=== PATIENT | male | born 1965 | race Caucasian/White ===

== ENCOUNTER 2018-10-04 17:33 | Emergency (ER) | payer OTHER ==
[2018-10-04 17:57] VITALS: BP 122/90; PULSE 96; TEMP 98.1; BMI 20.7
--- NOTE | 2018-10-04 18:53 | PDOC ---
History of Present Illness - General Chief Complaint: Injury Stated Complaint: RIB PAIN Time Seen by Provider: 10/04/18 18:41 History Source: Patient Exam Limitations: No Limitations - History of Present Illness Initial Comments: 10/04/18 18:51 States was followed by a friend a couple days ago and since that time his had significant pain to his chest wall primarily right sided ribs 56 and 7. Is uncertain but thinks may have some cracked ribs. Denies shortness of breath, denies fever,. Was recently in the intensive care unit for 5 days for gastric bleeding and liver disease due to alcoholism. Occurred: reports: last week Severity: reports: mild, moderate Modifying Factors: improves with: cold therapy Associated Symptoms (Fall): confusion, headache Past History - Travel Traveled outside of the country in the last 30 days: No Close contact w/someone who was outside of country & ill: No - Past Medical History Allergies/Adverse Reactions: Allergies Allergy/AdvReac Type Severity Reaction Status Date / Time No Known Allergies Allergy Verified 10/04/18 17:53 Home Medications: Ambulatory Orders Nadolol [Corgard -] 40 mg PO DAILY #30 tablet 05/24/18 Nicotine Patch [Nicoderm Patch -] 14 mg TD DAILY #30 patch 05/24/18 Pantoprazole Sodium [Protonix -] 40 mg PO BID #60 tablet.ec 05/24/18 Vitamins (Sjr) - 1 tab PO DAILY #30 tablet 05/24/18 Thiamine HCl [Vitamin B1 -] 100 mg PO DAILY #30 tablet 05/24/18 Naproxen [Naprosyn -] 500 mg PO BID #30 tablet 10/04/18 COPD: No GI Disorders: Yes (gastric ulcer) Psychiatric Problems: Yes (alcoholism) - Surgical History Abdominal Surgery: Yes (abdominal surgery for ulcer) - Immunization History Immunization Up to Date: Yes - Suicide/Smoking/Psychosocial Hx Smoking History: Current every day smoker Have you smoked in the past 12 months: Yes Number of Cigarettes Smoked Daily: 20 Information on smoking cessation initiated: No 'Breaking Loose' booklet given: 05/20/18 Hx Alcohol Use: No Drug/Substance Use Hx: No Substance Use Type: Alcohol Review of Systems - Review of Systems Able to Perform ROS?: Yes Is the patient limited Tunisian proficient: Yes Constitutional: Yes: Symptoms Reported, See HPI, Malaise. No: Fever HEENTM: Yes: See HPI. No: Symptoms Reported Respiratory: Yes: Symptoms reported, See HPI, Other (chest wall right side ribs 456) *Physical Exam - Vital Signs Last Vital Signs Temp Pulse Resp BP Pulse Ox 98.1 F 96 H 16 122/90 98 10/04/18 17:54 10/04/18 17:54 10/04/18 17:54 10/04/18 17:54 10/04/18 17:54 - Physical Exam General Appearance: Yes: Nourished, Appropriately Dressed, Apparent Distress, Mild Distress HEENT: positive: NII, Normal ENT Inspection, TMs Normal, Pharynx Normal Neck: positive: Tender, Supple Respiratory/Chest: positive: Chest Tender (mid chest wall ~ 5,6,7, no crepitus or stepoff. ), Lungs Clear (but pain with deep inspiration ). negative: Wheezing Musculoskeletal: positive: Normal Inspection Extremity: positive: Normal Capillary Refill, Normal Inspection, Normal Range of Motion Integumentary: positive: Normal Color, Dry, Warm, Pale. negative: Ecchymosis, Bruising Neurologic: positive: quilt sewer II-XII NML intact, Fully Oriented, Alert, Normal Mood/ Affect, Normal Response, Motor Strength 5/5 ED Treatment Course - RADIOLOGY Radiology Studies Ordered: Category Date Time Status RIBS RIGHT SIDE [RAD] Stat Radiology 10/04/18 18:46 Ordered Progress Note - Progress Note Progress Note: Rib 4 Fracture, discussed conservative treatment for healing *DC/Admit/Observation/Transfer Diagnosis at time of Disposition: Fracture, rib Qualifiers: Encounter type: initial encounter Rib fracture type: single rib Fracture type: closed Laterality: right Qualified Code(s): S22.31XA - Fracture of one rib, right side, initial encounter for closed fracture - Discharge Dispostion Disposition: HOME Condition at time of disposition: Stable Decision to Admit order: No - Referrals - Patient Instructions Printed Discharge Instructions: DI for Rib Fracture Additional Instructions: Rest, drink lots of fluids: Teas, water, soups, Avoid contact with others until fevers and cough resolved Lots of handwashing and good hygiene Continue [id number] medications for symptomatic relief Tylenol or Motrin for fever and pain Followup with private physician in one to 2 days as needed Return to emergency department for worsened symptoms, fevers, dehydration - Post Discharge Activity Forms/Work/School Notes: Back to Work
== END 2018-10-04 19:34 | disposition home or self-care (01) ==
LOC: JERFT 17:33
DX: S22.31XA Fracture of one rib, right side, initial encounter for closed fracture (principal); X58.XXXA Exposure to other specified factors, initial encounter; Y93.89 Activity, other specified; Y92.89 Other specified places as the place of occurrence of the external cause; Y99.8 Other external cause status
CPT/HCPCS: 71101-TC-RT-FY; 99281-25

== ENCOUNTER 2019-05-07 15:06 | Inpatient (IN) | payer OTHER ==
--- NOTE | 2019-05-07 15:12 | PDOC ---
Rapid Medical Evaluation Time Seen by Provider: 05/07/19 15:09 Medical Evaluation: Allergies Allergy/AdvReac Type Severity Reaction Status Date / Time No Known Allergies Allergy Verified 10/04/18 17:53 05/07/19 15:09 I have performed a brief in-person evaluation of this patient. The patient presents with a chief complaint of: black tarry stools Pertinent physical exam findings: HR-130, BP nml. Pale conjunctiva. Multiple ecchymotic areas on extremities. I have ordered the following: labs, urine, T&S, EKG The patient will proceed to the ED for further evaluation. 05/07/19 15:11 Discharge Disposition - Diagnosis Rectal bleeding - Referrals - Patient Instructions - Post Discharge Activity
[2019-05-07] MEDS ORDERED: SODIUM CHLORIDE 1,000 ML IV STA ×2 (15:56→17:27)
--- NOTE | 2019-05-07 16:07 | PDOC ---
History of Present Illness - General Chief Complaint: Rectal Bleed Stated Complaint: ABD PAIN Time Seen by Provider: 05/07/19 15:09 - History of Present Illness Initial Comments: 05/07/19 16:07 Patient is a 54 year old male presented to the ED with the chief complaint of coffee ground emesis and black tarry stool since 3 days. As per the patient, he had been drinking 5-6 shots of vodka a day, started having Hemetemesis and melena so stopped drinking and smoking since 3 days. Denies abdominal pain, chest pain, sob, cough, palpitation, headache, loc, seizures. States he doesn't have withdrawal symptoms now. He was admitted with similar episode 05/13, EGD was done which showed portal gastropathy, esophageal varices, duodenitis, bleeding schztaki ring. Past Medical Hx: GERD, PUD (takes OTC xantac), alcohol abuse, and tobacco dependence Allergies: NKDA Past surgical hx: None Social Hx: Lives with brother. Smokin PPD x 30 yrs Alcohol: 5-6 shots of vodka daily for 30 yrs Drugs: Denies Occupation: Used to work in the kitchen at [employer]. Family Hx: Non contributory. Past History - Travel Traveled outside of the country in the last 30 days: No Close contact w/someone who was outside of country & ill: No - Past Medical History Allergies/Adverse Reactions: Allergies Allergy/AdvReac Type Severity Reaction Status Date / Time No Known Allergies Allergy Verified 05/07/19 16:09 Home Medications: Ambulatory Orders Unobtainable 05/07/19 COPD: No GI Disorders: Yes (gastric ulcer) Psychiatric Problems: Yes (alcoholism) - Surgical History Abdominal Surgery: Yes (abdominal surgery for ulcer) - Immunization History Immunization Up to Date: Yes - Suicide/Smoking/Psychosocial Hx Smoking History: Current every day smoker Have you smoked in the past 12 months: Yes Number of Cigarettes Smoked Daily: 20 Information on smoking cessation initiated: No 'Breaking Loose' booklet given: 05/20/18 Hx Alcohol Use: Yes (states last drink 3 days ago) Drug/Substance Use Hx: No Substance Use Type: Alcohol Review of Systems - Review of Systems Able to Perform ROS?: Yes Is the patient limited Canadian proficient: No *Physical Exam - Vital Signs Last Vital Signs Temp Pulse Resp BP Pulse Ox 98.3 F 132 H 20 117/81 100 05/07/19 15:12 05/07/19 15:12 05/07/19 15:12 05/07/19 15:12 05/07/19 15:12 - Physical Exam Comments: 05/07/19 16:17 General: Middle aged male, lying comfortably in bed, awake, alert, oriented x 3 , in no acute distress. HEENT: EOM intact, pallor +, no icterus. Chest: B/L lungs clear, no added sounds CVS: Sinus tachycardia, Regular rate and rhythm, no murmurs Abdomen; Soft, non tender, no organomegaly, BS + Per rectal: Brown stool, stool for occult blood sent Ext: No swelling Skin: Multiple lesions throughout the upper and lower ext, salmon colored lesions, ecchymosis. ED Treatment Course - LABORATORY CBC & Chemistry Diagram: 05/07/19 16:20 05/07/19 16:20 Medical Decision Making - Medical Decision Making 05/07/19 16:20 Patient is a 54 year old male presented to the ED with the chief complaint of black tarry stool and coffee ground emesis x 3. He was admitted with similar complaints last year 05/13, EGD showed portal gastropathy, bleeding schtzaki's ring. Impression: Upper GI bleed Will send CBC, CMP, UA, Urine for tox, type and screen EKG 1 L of NS and PPI drip 05/07/19 17:27 Patient hasn't vomited or had tarry stool since he came in to the ED. Has tremors. CIWA 4. Will give him Ativan 2mg. U. tox collected before giving Ativan. Urine is dark colored, will order a L of NS. 05/07/19 18:01 H/H stable, 11/21. Will d/c protonix drip and start Protonix 40mg IV BID 05/07/19 18:[address] Castro who accepts admission. Dr. Robb consult placed. *DC/Admit/Observation/Transfer Diagnosis at time of Disposition: Rectal bleeding - Referrals - Patient Instructions - Post Discharge Activity
[2019-05-07] MEDS ORDERED: PANTOPRAZOLE SODIUM 80 MG in SODIUM CHLORIDE 100 ML IVPB SCH (16:30)
[2019-05-07] MEDS ORDERED: PANTOPRAZOLE SODIUM 40 MG VIAL ONE (16:31)
[2019-05-07] MEDS: PANTOPRAZOLE SODIUM 80 MG in SODIUM CHLORIDE 100 ML IVPB SCH (16:40)
[2019-05-07 16:51] LABS: BASO % 0.3 % (0-2.0); EOS % 1.4 % (0-4.5); HEMATOCRIT 37.4 % (35.4-49); HEMOGLOBIN 12.7 GM/dL (11.7-16.9); MCH 32.1 pg (25.7-33.7); MCHC 33.8 g/dl (32.0-35.9); MEAN PLT VOLUME 10.3 fl (7.5-11.1); MONO % 7.6 % (3.8-10.2); NEUT % 80.7 % (42.8-82.8); RBC 3.94 M/mm3 (4.00-5.60); RDW 16.8 % (11.9-15.9); RETICULOCYTES 1.17 % (0.5-1.5); WHITE BLOOD COUNT 8.4 K/mm3 (4.0-10.0)
[2019-05-07 16:59] LABS: PLATELET COUNT 110 K/MM3 (134-434)
[2019-05-07 17:17] LABS: INR 1.28 (0.83-1.09); PROTHROMBIN TIME (PATIENT) 15.1 SEC (9.7-13.0)
[2019-05-07 17:47] LABS: ALBUMIN 3.4 g/dl (3.4-5.0); ALK PHOS 116 U/L (45-117); ANION GAP 9 MMOL/L (8-16); BILIRUBIN,TOTAL 2.8 mg/dL (0.2-1); CALCIUM 8.8 mg/dL (8.5-10.1); CHLORIDE 102 mmol/L (98-107); CO2 28 mmol/L (21-32); CREATININE 0.9 mg/dL (0.55-1.3); GLUCOSE,RANDOM 102 mg/dL (74-106); POTASSIUM 3.4 mmol/L (3.5-5.1); SGOT/AST 104 U/L (15-37); SGPT/ALT 20 U/L (13-61); SODIUM 139 mmol/L (136-145); TOT PROT 7.6 g/dl (6.4-8.2)
[2019-05-07] MEDS ORDERED: LORazepam 2 MG/ML SDV VIAL ONE (17:54)
--- NOTE | 2019-05-07 18:05 | PDOC ---
Documentation entered by Cathryn Glover SCRIBE, acting as scribe for Keo Sanders MD. Keo Sanders MD: This documentation has been prepared by the alfaibe, Cathryn Glover SCRIBE, under my direction and personally reviewed by me in its entirety. I confirm that the documentation accurately reflects all work, treatment, procedures, and medical decision making performed by me. Attending Attestation - Resident Resident Name: Meseret Hercules - ED Attending Attestation I have performed the following: I have examined & evaluated the patient, The case was reviewed & discussed with the resident, I agree w/resident's findings & plan, Exceptions are as noted - HPI HPI: 05/07/19 16:28 The patient is a 54-year-old male, with a past medical history of alcoholism and UGIB, who presents to the ED with coffee ground emesis and black tarry stools. The patient states that he has been drinking 4-5 shots of vodka per day. 2 days ago, pt had an episode of coffee grounds emesis. He denies any episodes today but states that he began to notice dark tarry stools. Denies any abdominal pain. Last drink was 3 days ago. Endorses some tremors but denies hallucinations. No h/o seizures. The patient denies fevers, chills, or abdominal pain. Denies any chest pain, palpitations or shortness of breath. Denies any weakness, dizziness, or changes in strength or sensation. - Physicial Exam PE: 05/07/19 16:29 GENERAL: Awake, alert, and fully oriented, in no acute distress. HEAD: No signs of trauma EYES: PERRLA, EOMI, sclera anicteric, conjunctiva clear ENT: Auricles normal inspection, hearing grossly normal, nares patent, oropharynx clear without exudates. Moist mucosa NECK: Nontender, no stepoffs, Normal ROM, supple, no lymphadenopathy, JVD, or masses LUNGS: Breath sounds equal, clear to auscultation bilaterally. No wheezes, and no crackles HEART: Regular rate and rhythm, normal S1 and S2, no murmurs, rubs or gallops ABDOMEN: Soft, nontender, normoactive bowel sounds. No guarding, no rebound. No masses EXTREMITIES: Normal range of motion, no edema. No clubbing or cyanosis. No cords, erythema, or tenderness NEUROLOGICAL: + tremors, Cranial nerves II through XII intact. 5/5 strength and sensation in all extremities, Normal speech, normal gait, normal cerebellar function SKIN: Warm, Dry, normal turgor, no rashes or lesions noted. - Critical Care Time Total Critical Care Time: 60 Critical Care Statement: The care of this patient involved high complexity decision making to prevent further life threatening deterioration of the patient 's condition and/or to evaluate & treat vital organ system(s) failure or risk of failure. - Medical Decision Making 05/07/19 18:03 54 M with coffee grounds emesis and dark stools. Suspect recurrent UGIB as pt has had h/o similar in the past. Pt also with mild ETOH withdrawal on exam. - Labs - Stool guaiac - IVF - PPI - Ativan PRN - admit for GI eval
[2019-05-07 18:12] LABS: LDH 220 U/L (87-246)
[2019-05-07 18:40] LABS: COCAINE, UR NEGATIVE ng/ml (CUTOFF=300); METHADONE, UR NEGATIVE ng/ml (CUTOFF=300); OPIATES, URI NEGATIVE ng/ml (CUTOFF=300); PHENCYCLIDINE,URINE NEGATIVE ng/ml (CUTOFF=25); URINE AMPHETAMINES NEGATIVE ng/ml (CUTOFF=500); URINE BARBITURATES NEGATIVE ng/ml (CUTOFF=200); URINE BENZODIAZEPINES NEGATIVE ng/ml (CUTOFF=200)
--- NOTE | 2019-05-07 19:51 | HP ---
Admitting History and Physical - Primary Care Physician PCP: Armida Castro - Admission History of Present Illness: 54 year old male presented to the ED with the chief complaint of coffee ground emesis and black tarry stool since 3 days. As per the patient, he had been drinking 5-6 shots of vodka a day, started having Hemetemesis and melena so stopped drinking and smoking since 3 days. Denies abdominal pain, chest pain, sob, cough, palpitation, headache, loc, seizures. States he doesn't have withdrawal symptoms now. He was admitted with similar episode 05/13, EGD was done which showed portal gastropathy, esophageal varices, duodenitis, bleeding schztaki ring. P - Past Medical History Gastrointestinal: Yes: Peptic Ulcer Disease - Smoking History Smoking history: Current every day smoker Have you smoked in the past 12 months: Yes Aproximately how many cigarettes per day: 20 - Alcohol/Substance Use Hx Alcohol Use: Yes (states last drink 3 days ago) Number of Drinks Daily: 4 (Vodka's per day) History of Substance Use: reports: Marijuana Date of Last Use: 05/20/18 - Social History ADL: Independent History of Recent Travel: No Home Medications - Allergies Allergies/Adverse Reactions: Allergies Allergy/AdvReac Type Severity Reaction Status Date / Time No Known Allergies Allergy Verified 05/07/19 16:09 - Home Medications Home Medications: Ambulatory Orders Naprosyn PO PRN 05/08/19 Pantoprazole Sodium [Protonix] 40 mg PO BID 05/08/19 Trazodone HCl 05/09/19 Diphenhydramine HCl [Benadryl Capsule -] 25 mg PO Q6H PRN capsule 05/10/19 Physical Examination Vital Signs: Vital Signs Temperature 98.3 F 05/07/19 15:12 Pulse Rate 101 H 05/07/19 18:08 Respiratory Rate 20 05/07/19 18:08 Blood Pressure 110/79 05/07/19 18:08 O2 Sat by Pulse Oximetry (%) 99 05/07/19 18:32 Constitutional: Yes: Anxious HENT: Yes: Atraumatic Neck: Yes: Supple Cardiovascular: Yes: Regular Rate and Rhythm Respiratory: Yes: CTA Bilaterally Gastrointestinal: Yes: Normal Bowel Sounds Extremities: Yes: WNL Labs: CBC, BMP 05/07/19 16:20 05/07/19 16:20 Problem List - Problems (1) Upper GI bleeding Assessment/Plan: npo, ivf iv protonix Code(s): K92.2 - GASTROINTESTINAL HEMORRHAGE, UNSPECIFIED (2) Portal hypertensive gastropathy Code(s): K76.6 - PORTAL HYPERTENSION; K31.89 - OTHER DISEASES OF STOMACH AND DUODENUM (3) Smoking greater than 30 pack years Code(s): F17.210 - NICOTINE DEPENDENCE, CIGARETTES, UNCOMPLICATED (4) Alcohol abuse Assessment/Plan: prn ativan for withdrawl stable Code(s): F10.10 - ALCOHOL ABUSE, UNCOMPLICATED Assessment/Plan Laboratory Tests 05/07/19 05/07/19 05/07/19 15:51 16:20 16:20 WBC 8.4 RBC 3.94 L Hgb 12.7 Hct 37.4 D MCV 95.0 MCH 32.1 MCHC 33.8 RDW 16.8 H Plt Count 110 L D MPV 10.3 Absolute Neuts (auto) 6.8 Neutrophils % 80.7 Lymphocytes % 10.0 D Monocytes % 7.6 Eosinophils % 1.4 Basophils % 0.3 Nucleated RBC % 0 Retic Count 1.17 PT with INR 15.10 H INR 1.28 H Sodium Potassium Chloride Carbon Dioxide Anion Gap BUN Creatinine Est GFR (CKD-EPI)AfAm Est GFR (CKD-EPI)NonAf Random Glucose Calcium Ferritin Total Bilirubin AST ALT Alkaline Phosphatase LD Total Creatine Kinase Troponin I Total Protein Albumin TSH Stool Occult Blood Positive Opiates Screen Methadone Screen Barbiturate Screen Phencyclidine Screen Ur Amphetamines Screen MDMA (Ecstasy) Screen Benzodiazepines Screen Cocaine Screen U Marijuana (THC) Screen Blood Type Antibody Screen 05/07/19 05/07/19 05/07/19 16:20 16:20 17:57 WBC RBC Hgb Hct MCV MCH MCHC RDW Plt Count MPV Absolute Neuts (auto) Neutrophils % Lymphocytes % Monocytes % Eosinophils % Basophils % Nucleated RBC % Retic Count PT with INR INR Sodium 139 Potassium 3.4 L Chloride 102 Carbon Dioxide 28 Anion Gap 9 BUN 18.0 Creatinine 0.9 Est GFR (CKD-EPI)AfAm 113.41 Est GFR (CKD-EPI)NonAf 97.85 Random Glucose 102 Calcium 8.8 Ferritin 125.1 Total Bilirubin 2.8 H AST 104 H ALT 20 Alkaline Phosphatase 116 LD Total 220 Creatine Kinase 86 Troponin I < 0.02 Total Protein 7.6 Albumin 3.4 TSH 2.37 Stool Occult Blood Opiates Screen Negative Methadone Screen Negative Barbiturate Screen Negative Phencyclidine Screen Negative Ur Amphetamines Screen Negative MDMA (Ecstasy) Screen Negative Benzodiazepines Screen Negative Cocaine Screen Negative U Marijuana (THC) Screen Positive A* Blood Type A POSITIVE Antibody Screen Negative Active Medications Generic Name Dose Route Start Last Admin Trade Name Freq PRN Reason Stop Dose Admin Pantoprazole Sodium 80 mg/ 100 mls @ 10 mls/hr 05/07/19 16:30 05/07/19 16:40 Sodium Chloride IVPB 10 mls/hr Q10H SHAMIR Administration 8 MG/HR Pantoprazole Sodium 40 mg 05/07/19 22:00 Protonix Iv IVPUSH BID SAHMIR Active Medications Generic Name Dose Route Start Last Admin Trade Name Freq PRN Reason Stop Dose Admin Diphenhydramine HCl 25 mg 05/09/19 18:54 05/10/19 04:50 Benadryl - PO 25 mg Q6H PRN Administration FOR ITCHING Levofloxacin 500 mg in 100 mls @ 100 mls/hr 05/10/19 10:00 05/10/19 09:48 Levaquin 500 Mg Premixed Ivpb - IVPB 100 mls/hr DAILY SHAMIR Administration Protocol Lorazepam 1 mg 05/09/19 15:17 05/10/19 09:55 Ativan Injection - IVPUSH 1 mg Q4H PRN Administration ANXIETY Nadolol 20 mg 05/10/19 10:00 05/10/19 09:48 Corgard - PO 20 mg DAILY SHAMIR Administration Ranitidine HCl 150 mg 05/09/19 22:00 05/10/19 09:48 Zantac - PO 150 mg BID SHAMIR Administration
[2019-05-07] MEDS: PANTOPRAZOLE SODIUM 40 MG VIAL IVPUSH SCH (22:21)
[2019-05-08] MEDS: SODIUM CHLORIDE 1,000 ML IV SCH ×3 (01:00→20:06)
[2019-05-08] MEDS: PANTOPRAZOLE SODIUM 80 MG in SODIUM CHLORIDE 100 ML IVPB SCH ×2 (02:42→12:24)
[2019-05-08 08:42] LABS: BASO % 0.6 % (0-2.0); EOS % 1.8 % (0-4.5); HEMATOCRIT 28.3 % (35.4-49); HEMOGLOBIN 9.5 GM/dL (11.7-16.9); LYMPH % 18.2 % (8-40); MCH 31.8 pg (25.7-33.7); MCHC 33.6 g/dl (32.0-35.9); MEAN CELL VOLUME 94.6 fl (80-96); MONO % 8.2 % (3.8-10.2); NEUT % 71.2 % (42.8-82.8); PLATELET COUNT 74 K/MM3 (134-434); RBC 2.99 M/mm3 (4.00-5.60); RDW 16.6 % (11.9-15.9); WHITE BLOOD COUNT 5.4 K/mm3 (4.0-10.0)
--- NOTE | 2019-05-08 08:55 | CON.GI ---
Consult Consult Specialty:: GI Referred by:: Dr. Castro Reason for Consultation:: Hematemesis - History of Present Illness Chief Complaint: Vomited blood / dark BM's for 3 days History of Present Illness: 54M admitted through [facility] ER for evaluation of melena. He states that three days ago while going about his usual routine of drinking 5-5 drinks of vodka per day, he vomited bright red blood. This was followed subsequently by dark BM 's over the last three days. The last dark BM was yesterday morning. There has been no further vomiting. he was given ativan in the ER for tremors and PPI drip was started. He denies NSAID use. He had a similar episode in 05/13 and upper endoscopy revealed 3 columns of small-medium varices without stigmata of hemorrhage, a schatzki's ring with a mucosal tear suggestive of a mallolry velásquez tear, portal gastropathy and a small antral ulcer. non selective beta fazal therapy was advised as well as the need for complete alcohol cessation. He has not regularly followed up with a physician since that time. He denies abdominal pain. As above he continues to drink alcohol and has a history of alcohol withdrawal. - History Source History Provided By: Patient, Medical Record - Past Medical History Gastrointestinal: Yes: Peptic Ulcer Disease (antral ulcer) Hepatobiliary: Yes: Cirrhosis (Alcoholic), Other (Esophageal varices, portal gastropathy) - Alcohol/Substance Use Hx Alcohol Use: Yes (states last drink 3 days ago) Number of Drinks Daily: 6 (Vodka's per day) History of Substance Use: reports: Marijuana Date of Last Use: 05/20/18 - Smoking History Smoking history: Current every day smoker Have you smoked in the past 12 months: Yes Aproximately how many cigarettes per day: 20 - Social History Usual Living Arrangement: With Spouse ADL: Independent Place of : [facility] History of Recent Travel: No Home Medications - Allergies Allergies/Adverse Reactions: Allergies Allergy/AdvReac Type Severity Reaction Status Date / Time No Known Allergies Allergy Verified 05/07/19 16:09 - Home Medications Home Medications: Ambulatory Orders Trazodone HCl 100 mg HS 05/08/19 Family Disease History - Family Disease History Other Family History: No family history of liver disease. No family history of colorectal cancer Review of Systems - Review of Systems Constitutional: denies: Chills Cardiovascular: denies: Chest Pain Respiratory: denies: SOB Gastrointestinal: reports: Melena, Vomiting Blood Neurological: reports: Tremors Physical Exam-GI Vital Signs: Vital Signs Temperature 98.6 F 05/08/19 06:00 Pulse Rate 99 H 05/08/19 06:00 Respiratory Rate 18 05/08/19 06:00 Blood Pressure 114/63 05/08/19 06:00 O2 Sat by Pulse Oximetry (%) 99 05/07/19 22:00 Constitutional: Yes: Calm Eyes: No: Sclera Icterus Cardiovascular: Yes: Tachycardia. No: Murmur Respiratory: Yes: CTA Bilaterally Gastrointestinal Inspection: No: Distention, Scars ...Auscultate: Yes: Normoactive Bowel Sounds ...Palpate: Yes: Soft. No: Hepatomegaly, Splenomegaly, Tenderness ...Percussion: No: Tympanitic Edema: No (No LE edema) Neurological: Yes: Tremors Labs: AM LABS PENDING Problem List - Problems (1) Upper GI bleeding Assessment/Plan: Episode of gross hematemesis. Given prior history and endoscopy findings, considerations for etiologies would have maria l include variceal hemorrhage, mariano velásquez tear, bleeding from portal gastropathy, recurrent PUD. Advise: NPO IV hydration PPI drip Levaquin 500mg IVPB daily until variceal bleed excluded Repeat AM labs including magnesium, phosphorous, coags Withdrawal precautions and treatment of known etoh withdrawal Discussed upper endoscopy +/- banding of varices. Discussed potential risks of the procedures like but not limited to bleeding, perforation requiring surgery to repair, infection, sedation medication effects all of which could be potentially life threatening. Explained potential need for intubation as well if there is active bleeding. He agreed to the procedure. Consent obtained. If banding of varices, he will need to be monitored in ICU setting. Patient needs Q 6 month hepatic US to screen for hepatoma given that he has cirrhosis Explained to the patient that continued alcohol use will expedite further decompensation of his liver disease and complications that will expedite his . He needs to completely abstain from alcohol and actively particuipate in achieving abstinence. Code(s): K92.2 - GASTROINTESTINAL HEMORRHAGE, UNSPECIFIED
[2019-05-08 09:20] LABS: ALBUMIN 2.6 g/dl (3.4-5.0); BILIRUBIN,TOTAL 2.4 mg/dL (0.2-1); BLOOD UREA NITROGEN 13.2 mg/dL (7-18); CALCIUM 7.7 mg/dL (8.5-10.1); CREATININE 0.5 mg/dL (0.55-1.3); POTASSIUM 3.2 mmol/L (3.5-5.1); TOT PROT 5.9 g/dl (6.4-8.2)
[2019-05-08] MEDS ORDERED: SODIUM CHLORIDE 1,000 ML IV STA (09:47)
--- NOTE | 2019-05-08 09:55 | HOSP ---
Subjective - Review of Symptoms General: Yes: Fatigue, Malaise Other Systems: bilateral lower extremity - itchy raised rash that started suddenly, no shortness of breath Physical Examination Vital Signs: Vital Signs Temperature 98.6 F 05/08/19 06:00 Pulse Rate 99 H 05/08/19 06:00 Respiratory Rate 18 05/08/19 06:00 Blood Pressure 114/63 05/08/19 06:00 O2 Sat by Pulse Oximetry (%) 99 05/07/19 22:00 Constitutional: Yes: Anxious Eyes: Yes: WNL Neck: Yes: WNL Cardiovascular: Yes: Regular Rate and Rhythm Respiratory: Yes: Regular, CTA Bilaterally Gastrointestinal: Yes: Normal Bowel Sounds, Soft ...Rectal Exam: Yes: Deferred Integumentary: Yes: Erythema, Rash, Other (erythma multiforme/bilateral legs. from protonix?) Neurological: Yes: Alert, Oriented Psychiatric: Yes: Alert, Oriented Labs: CBC, BMP 05/08/19 06:45 Hospitalist Encounter Assessment: called to see patient by primary RN over concerns over diffused skin rash, possible reaction on bilateral lower legs that began this morning patient awake and alert and in no acute distress, reports a raised skin rash, itchy that started this morning and is spreading on both his legs He denies any shortness of breath or chest pain, denies palpitations neuro: awake alert, anxious lungs: clear to auscultation bilaterally - no wheezing abdomen: soft, non distended upper ext: no rash, skin dry and intact lower ext: diffused erythema what appears to be erythema multiforme from a possible drug reaction vs another source plan: no wheezing, no chest pain, lungs clear to auscultation, vitals stable. tolerating room air give benadryl 25mg push x 1 now NS 1liter bolus now monitor and repeat benadryl if no improvement. may need systemic steriods if no improvement. consider derm consult. baljinder tellez population health coach [employer] transportation driver [phone]
[2019-05-08] MEDS ORDERED: LORazepam 2 MG/ML SDV VIAL IM ONE (10:15)
--- NOTE | 2019-05-08 11:45 | EKG ---
Test Reason : Blood Pressure : / mmHG Vent. Rate : 097 BPM Atrial Rate : 097 BPM P-R Int : 146 ms QRS Dur : 086 ms QT Int : 380 ms P-R-T Axes : 065 057 046 degrees QTc Int : 482 ms NORMAL SINUS RHYTHM SEPTAL INFARCT (CITED ON OR BEFORE 20-MAY-2018) ABNORMAL ECG WHEN COMPARED WITH ECG OF 20-MAY-2018 23:25, QUESTIONABLE CHANGE IN INITIAL FORCES OF ANTERIOR LEADS NONSPECIFIC T WAVE ABNORMALITY NO LONGER EVIDENT IN INFERIOR LEADS Confirmed by ALLIE YING MD ([id number]) on 05/08/2019 11:45:30 AM Referred By: Confirmed By:ALLIE YING MD
[2019-05-08 11:46] LABS: INR 1.35 (0.83-1.09)
[2019-05-08 11:46] LABS: MAGNESIUM 1.5 mg/dL (1.8-2.4); PHOSPHOROUS 2.6 mg/dL (2.5-4.9)
[2019-05-08] MEDS: PANTOPRAZOLE SODIUM 40 MG VIAL IVPUSH SCH ×2 (12:14→21:35)
[2019-05-08] MEDS ORDERED: LORazepam 2 MG/ML SDV VIAL IVPUSH PRN (12:21)
[2019-05-08] MEDS ORDERED: methylPREDNISolone NA SUCC 40 MG/1 ML VIAL IVPUSH ONE (12:21)
--- NOTE | 2019-05-08 12:21 | PN ---
Progress Note, Physician - Current Medication List Current Medications: Active Medications Pantoprazole Sodium 80 mg/ (Sodium Chloride) 100 mls @ 10 mls/hr IVPB Q10H [facility] Last Admin: 05/08/19 02:42 Dose: Not Given Sodium Chloride (Normal Saline -) 1,000 mls @ 100 mls/hr IV ASDIR [facility] Last Admin: 05/08/19 01:00 Dose: 100 mls/hr Levofloxacin (Levaquin 500 Mg Premixed Ivpb -) 500 mg in 100 mls @ 100 mls/hr IVPB DAILY [facility]; Protocol Pantoprazole Sodium (Protonix Iv) 40 mg IVPUSH BID [facility] Last Admin: 05/08/19 12:14 Dose: Not Given - Objective Vital Signs: Vital Signs Temperature 98.7 F 05/08/19 08:00 Pulse Rate 115 H 05/08/19 08:00 Respiratory Rate 18 05/08/19 08:00 Blood Pressure 115/76 05/08/19 08:00 O2 Sat by Pulse Oximetry (%) 99 05/08/19 09:00 Constitutional: Yes: No Distress HENT: Yes: Atraumatic Neck: Yes: Supple Cardiovascular: Yes: Regular Rate and Rhythm Respiratory: Yes: CTA Bilaterally Gastrointestinal: Yes: Normal Bowel Sounds Extremities: Yes: WNL Edema: No Neurological: Yes: Alert, Oriented Labs: CBC, BMP 05/08/19 06:45 05/08/19 06:45 INR, PTT INR 1.35 (0.83-1.09) H 05/08/19 10:45 Problem List - Problems (1) Upper GI bleeding Assessment/Plan: iv protonix npo for egd today Code(s): K92.2 - GASTROINTESTINAL HEMORRHAGE, UNSPECIFIED (2) Portal hypertensive gastropathy Code(s): K76.6 - PORTAL HYPERTENSION; K31.89 - OTHER DISEASES OF STOMACH AND DUODENUM (3) Smoking greater than 30 pack years Code(s): F17.210 - NICOTINE DEPENDENCE, CIGARETTES, UNCOMPLICATED (4) Alcohol abuse Assessment/Plan: prn ativan for withdrawl Code(s): F10.10 - ALCOHOL ABUSE, UNCOMPLICATED (5) Rash and nonspecific skin eruption Assessment/Plan: prn benadryl derm consult in place Code(s): R21 - RASH AND OTHER NONSPECIFIC SKIN ERUPTION Assessment/Plan cc time 35
--- NOTE | 2019-05-08 12:26 | PN ---
Progress Note (short form) - Note Progress Note: Patient with blanching macular rash along LE, lower back. Afebrile, no respiratory symptoms, was prutitic and started today. patient states that he had a similar rash a week ago that resolved. Spoke w/ Dr. Castro. Would like patient to get corticosteroids prior to procedure. Given that variceal bleed still in differential, dosing levaquin 500mg IVPB starting today Will need further evaluation of rash per PMD. Consider Derm / ID evaluation Repeat labs noted. Will need repletion of lytes Problem List - Problems (1) Upper GI bleeding Code(s): K92.2 - GASTROINTESTINAL HEMORRHAGE, UNSPECIFIED
--- NOTE | 2019-05-08 14:12 | PN ---
S Progress Note (SOAP) Subjective: consult requested for this pt w/ h/o etoh abuse , per nursing pt taken to or for procedure. Active Medications Pantoprazole Sodium 80 mg/ (Sodium Chloride) 100 mls @ 10 mls/hr IVPB Q10H [facility] Last Admin: 05/08/19 12:24 Dose: Not Given Sodium Chloride (Normal Saline -) 1,000 mls @ 100 mls/hr IV ASDIR [facility] Last Admin: 05/08/19 01:00 Dose: 100 mls/hr Levofloxacin (Levaquin 500 Mg Premixed Ivpb -) 500 mg in 100 mls @ 100 mls/hr IVPB DAILY [facility]; Protocol Last Admin: 05/08/19 12:28 Dose: 100 mls/hr Lorazepam (Ativan Injection -) 1 mg IVPUSH Q4H PRN PRN Reason: ANXIETY Pantoprazole Sodium (Protonix Iv) 40 mg IVPUSH BID [facility] Last Admin: 05/08/19 12:14 Dose: Not Given Objective: 05/08/19 14:12 CBC, BMP 05/08/19 06:45 05/08/19 06:45 Abnormal Lab Results 05/07/19 05/07/19 05/07/19 16:20 16:20 16:20 RBC 3.94 L Hgb Hct RDW 16.8 H Plt Count 110 L D PT with INR 15.10 H INR 1.28 H Potassium 3.4 L Chloride Creatinine Random Glucose Calcium Magnesium Total Bilirubin 2.8 H AST 104 H Total Protein Albumin U Marijuana (THC) Screen 05/07/19 05/08/19 05/08/19 17:57 06:45 06:45 RBC 2.99 L Hgb 9.5 L Hct 28.3 L D RDW 16.6 H Plt Count 74 L D PT with INR INR Potassium 3.2 L Chloride 108 H Creatinine 0.5 L Random Glucose 69 L Calcium 7.7 L Magnesium 1.5 L Total Bilirubin 2.4 H AST 80 H Total Protein 5.9 L Albumin 2.6 L U Marijuana (THC) Screen Positive A* 05/08/19 10:45 RBC Hgb Hct RDW Plt Count PT with INR 16.00 H INR 1.35 H Potassium Chloride Creatinine Random Glucose Calcium Magnesium Total Bilirubin AST Total Protein Albumin U Marijuana (THC) Screen Vital Signs - 24 hr 0605/07/19 05/07/19 15:12 18:08 18:32 Temperature 98.3 F Pulse Rate 132 H Pulse Rate [ 101 H Radial] Respiratory 20 20 Rate Blood Pressure 117/81 Blood Pressure 110/79 [Left Arm] O2 Sat by Pulse 100 100 99 Oximetry (%) 05/07/19 05/07/19 05/08/19 21:00 22:00 02:00 Temperature 98.4 F 98.5 F Pulse Rate 105 H 98 H Pulse Rate [ Radial] Respiratory 18 18 Rate Blood Pressure 101/74 109/62 Blood Pressure [Left Arm] O2 Sat by Pulse 99 99 Oximetry (%) 05/08/19 05/08/19 05/08/19 06:00 08:00 09:00 Temperature 98.6 F 98.7 F Pulse Rate 99 H 115 H Pulse Rate [ Radial] Respiratory 18 18 Rate Blood Pressure 114/63 115/76 Blood Pressure [Left Arm] O2 Sat by Pulse 99 Oximetry (%) 05/08/19 12:00 Temperature 98.6 F Pulse Rate 102 H Pulse Rate [ Radial] Respiratory 18 Rate Blood Pressure 119/68 Blood Pressure [Left Arm] O2 Sat by Pulse Oximetry (%) Assessment: pt in procedure Plan: please re-consult as needed after procedure
--- NOTE | 2019-05-08 14:41 | PN ---
Progress Note (short form) - Note Progress Note: EGD complete. Report left in procedural section of the physical chart and will be scanned into [email or web address] Problem List - Problems (1) Upper GI bleeding Code(s): K92.2 - GASTROINTESTINAL HEMORRHAGE, UNSPECIFIED
[2019-05-08] MEDS ORDERED: OCTREOTIDE ACETATE 50 MCG/1 ML - 1 ML VIAL IVPUSH ONE (14:43)
--- NOTE | 2019-05-08 15:12 | CONSULT ---
Consultation: REQUESTING PROVIDER: Dr. Franklin CONSULT REQUEST: We have been asked to medically evaluate this patient for ICU admission HISTORY OF PRESENT ILLNESS: Patient is a 54 year old male with history of alcohol use disorder (5-6 drinks of Vodka daily), alcoholic cirrhosis, esophageal varices, peptic ulcer disease, presented initially with three day history of hematemesis and melenic stools. Today patient underwent upper endoscopy, which revealed two columns small- medium sized distal esophageal varices which were banded, sliding hiatal hernia , and nonbleeding hypertensive gastropathy. Currently patient resting comfortably in exam bed. Patient admits passing flatus after the procedure, however has not yet had a bowel movement. Last bowel movement reported earlier this morning, which was melanic. Last episode of vomiting was two days ago at admission. He denies subjective fevers, chills, shortness of breath, chest pain , palpitaitions, abdominal pain, nausea, vomiting. REVIEW OF SYSTEMS: CONSTITUTIONAL: Absent: fever, chills, diaphoresis, generalized weakness, malaise, loss of appetite, weight change HEENT: Absent: rhinorrhea, nasal congestion, throat pain, throat swelling, difficulty swallowing, mouth swelling, ear pain, eye pain, visual changes CARDIOVASCULAR: Absent: chest pain, syncope, palpitations, irregular heart rate, lightheadedness , peripheral edema RESPIRATORY: Absent: cough, shortness of breath, dyspnea with exertion, orthopnea, wheezing, stridor, hemoptysis GASTROINTESTINAL: Absent: abdominal pain, abdominal distension, nausea, vomiting, diarrhea, constipation, melena, hematochezia GENITOURINARY: Absent: dysuria, frequency, urgency, hesitancy, hematuria, flank pain, genital pain MUSCULOSKELETAL: Absent: myalgia, arthralgia, joint swelling, back pain, neck pain SKIN: Absent: rash, itching, pallor HEMATOLOGIC/IMMUNOLOGIC: Absent: easy bleeding, easy bruising, lymphadenopathy, frequent infections ENDOCRINE: Absent: unexplained weight gain, unexplained weight loss, heat intolerance, cold intolerance NEUROLOGIC: Absent: headache, focal weakness or paresthesias, dizziness, unsteady gait, seizure, mental status changes, bladder or bowel incontinence PSYCHIATRIC: Absent: anxiety, depression, suicidal or homicidal ideation, hallucinations. PHYSICAL EXAMINATION Vital Signs - 24 hr 05/07/19 05/07/19 05/07/19 18:08 18:32 21:00 Temperature Pulse Rate Pulse Rate [ 101 H Radial] Respiratory 20 Rate Blood Pressure Blood Pressure 110/79 [Left Arm] O2 Sat by Pulse 100 99 99 Oximetry (%) 05/07/19 05/08/19 05/08/19 22:00 02:00 06:00 Temperature 98.4 F 98.5 F 98.6 F Pulse Rate 105 H 98 H 99 H Pulse Rate [ Radial] Respiratory 18 18 18 Rate Blood Pressure 101/74 109/62 114/63 Blood Pressure [Left Arm] O2 Sat by Pulse 99 Oximetry (%) 05/08/19 05/08/19 05/08/19 08:00 09:00 12:00 Temperature 98.7 F 98.6 F Pulse Rate 115 H 102 H Pulse Rate [ Radial] Respiratory 18 18 Rate Blood Pressure 115/76 119/68 Blood Pressure [Left Arm] O2 Sat by Pulse 99 Oximetry (%) 05/08/19 05/08/19 05/08/19 14:30 14:45 15:00 Temperature 98.0 F Pulse Rate 92 H 90 90 Pulse Rate [ Radial] Respiratory 20 20 20 Rate Blood Pressure 116/75 127/81 128/82 Blood Pressure [Left Arm] O2 Sat by Pulse 99 100 100 Oximetry (%) GENERAL: Patient is awake, alert, and fully oriented, in no acute distress. HEAD: Normocephalic, atraumatic EYES: Pupils equal, round and reactive to light, extraocular movements intact, sclera anicteric, conjunctiva clear. EARS, NOSE, THROAT: Oropharynx clear without exudates. Moist mucous membranes. Minimal subglossal pallor. NECK: Normal range of motion, supple without lymphadenopathy, or JVD. LUNGS: Good inspiratory effort. Breath sounds equal, clear to auscultation bilaterally. No wheezes, and no crackles. No accessory muscle use. HEART: Regular rate and rhythm. Normal S1 and S2 auscultated without murmur, rub or gallop. ABDOMEN: Soft, not distended, nontender to light and deep palpation x4 quadrants. Normoactive bowel sounds x4 quadrants. No guarding, no rebound tenderness. Hepatomegaly palpated 2cm below costal margin. MUSCULOSKELETAL: Normal range of motion at all joints. No bony deformities or tenderness. No CVA tenderness. UPPER EXTREMITIES: 2+ radial pulses bilaterally, warm, well-perfused. LOWER EXTREMITIES: 2+ dorsalis pedis pulses bilaterally, warm, well-perfused. No calf tenderness.bilaterally. No peripheral edema bilaterally. NEUROLOGICAL: Cranial nerves II-XII grossly intact. Normal speech. Strength 5/ 5 bilateral upper and lower extremities. No tremors appreciated. PSYCHIATRIC: Cooperative. Good eye contact. Appropriate mood and affect. SKIN: Warm, dry. Diffuse erythematous rash noted bilateral lower extremities. Laboratory Results - last 24 hr 05/07/19 05/07/19 05/07/19 15:51 16:20 16:20 WBC 8.4 RBC 3.94 L Hgb 12.7 Hct 37.4 D MCV 95.0 MCH 32.1 MCHC 33.8 RDW 16.8 H Plt Count 110 L D MPV 10.3 Absolute Neuts (auto) 6.8 Neutrophils % 80.7 Lymphocytes % 10.0 D Monocytes % 7.6 Eosinophils % 1.4 Basophils % 0.3 Nucleated RBC % 0 Retic Count 1.17 PT with INR 15.10 H INR 1.28 H Sodium Potassium Chloride Carbon Dioxide Anion Gap BUN Creatinine Est GFR (CKD-EPI)AfAm Est GFR (CKD-EPI)NonAf Random Glucose Calcium Phosphorus Magnesium Ferritin Total Bilirubin AST ALT Alkaline Phosphatase LD Total Creatine Kinase Troponin I Total Protein Albumin TSH Stool Occult Blood Positive Opiates Screen Methadone Screen Barbiturate Screen Phencyclidine Screen Ur Amphetamines Screen MDMA (Ecstasy) Screen Benzodiazepines Screen Cocaine Screen U Marijuana (THC) Screen Blood Type Antibody Screen 05/07/19 05/07/19 05/07/19 16:20 16:20 17:57 WBC RBC Hgb Hct MCV MCH MCHC RDW Plt Count MPV Absolute Neuts (auto) Neutrophils % Lymphocytes % Monocytes % Eosinophils % Basophils % Nucleated RBC % Retic Count PT with INR INR Sodium 139 Potassium 3.4 L Chloride 102 Carbon Dioxide 28 Anion Gap 9 BUN 18.0 Creatinine 0.9 Est GFR (CKD-EPI)AfAm 113.41 Est GFR (CKD-EPI)NonAf 97.85 Random Glucose 102 Calcium 8.8 Phosphorus Magnesium Ferritin 125.1 Total Bilirubin 2.8 H AST 104 H ALT 20 Alkaline Phosphatase 116 LD Total 220 Creatine Kinase 86 Troponin I < 0.02 Total Protein 7.6 Albumin 3.4 TSH 2.37 Stool Occult Blood Opiates Screen Negative Methadone Screen Negative Barbiturate Screen Negative Phencyclidine Screen Negative Ur Amphetamines Screen Negative MDMA (Ecstasy) Screen Negative Benzodiazepines Screen Negative Cocaine Screen Negative U Marijuana (THC) Screen Positive A* Blood Type A POSITIVE Antibody Screen Negative 05/08/19 05/08/19 05/08/19 06:45 06:45 10:45 WBC 5.4 RBC 2.99 L Hgb 9.5 L Hct 28.3 L D MCV 94.6 MCH 31.8 MCHC 33.6 RDW 16.6 H Plt Count 74 L D MPV 10.0 Absolute Neuts (auto) 3.9 Neutrophils % 71.2 Lymphocytes % 18.2 D Monocytes % 8.2 Eosinophils % 1.8 Basophils % 0.6 Nucleated RBC % 0 Retic Count PT with INR 16.00 H INR 1.35 H Sodium 142 Potassium 3.2 L Chloride 108 H Carbon Dioxide 24 Anion Gap 10 BUN 13.2 Creatinine 0.5 L Est GFR (CKD-EPI)AfAm 144.40 Est GFR (CKD-EPI)NonAf 124.59 Random Glucose 69 L Calcium 7.7 L Phosphorus 2.6 Magnesium 1.5 L Ferritin Total Bilirubin 2.4 H AST 80 H ALT 15 Alkaline Phosphatase 86 LD Total Creatine Kinase Troponin I Total Protein 5.9 L Albumin 2.6 L TSH Stool Occult Blood Opiates Screen Methadone Screen Barbiturate Screen Phencyclidine Screen Ur Amphetamines Screen MDMA (Ecstasy) Screen Benzodiazepines Screen Cocaine Screen U Marijuana (THC) Screen Blood Type Antibody Screen Active Medications Generic Name Dose Route Start Last Admin Trade Name Freq PRN Reason Stop Dose Admin Pantoprazole Sodium 80 mg/ 100 mls @ 10 mls/hr 05/07/19 16:30 05/08/19 12:24 Sodium Chloride IVPB Not Given Q10H [facility] 8 MG/HR Sodium Chloride 1,000 mls @ 100 mls/hr 05/07/19 20:00 05/08/19 01:00 Normal Saline - IV 100 mls/hr ASDIR [facility] Administration Levofloxacin 500 mg in 100 mls @ 100 mls/hr 05/08/19 08:52 05/08/19 12:28 Levaquin 500 Mg Premixed Ivpb - IVPB 100 mls/hr DAILY [facility] Administration Protocol Octreotide Acetate 200 mcg/ 500 mls @ 20.833 mls/hr 05/08/19 16:00 Octreotide Acetate 1,000 mcg/ IVPB Dextrose ASDIR SHAMIR Lorazepam 1 mg 05/08/19 12:21 Ativan Injection - IVPUSH Q4H PRN ANXIETY Nadolol 20 mg 05/09/19 10:00 Corgard - PO DAILY [facility] Pantoprazole Sodium 40 mg 05/07/19 22:00 05/08/19 12:14 Protonix Iv IVPUSH Not Given BID [facility] ASSESSMENT/PLAN: Patient is a 54 year old male with history of alcohol use disorder (5-6 drinks of Vodka daily), alcoholic cirrhosis, esophageal varices, peptic ulcer disease, presented initially with three day history of hematemesis and melenic stools. Patient is s/p endoscopy revealing two columns small- medium sized distal esophageal varices which were banded, sliding hiatal hernia, and nonbleeding hypertensive gastropathy. Neurologic -Patient is currently, awake, alert, oriented, in no acute distress. -Patient does not appear to be withdrawing at this time. CIWA 0-1. -Ativan 1mg Q4 hours as needed for agitation, withdrawal. -Monitor for withdrawal signs, changes in mental status -Fall precautions Pulmonary -Patient saturating well on room air -Maintain oxygen saturation greater than 90% Cardiac -Patient currently normotensive, not on pressors. -Monitor hemodynamics closely, as patient is s/p variceal banding -Nadolol 20mg PO daily Gastrointestinal Alcohol use disorder Alcoholic cirrhosis Esophageal varices Peptic ulcer disease -Patient is s/p endoscopy with banding of two columns small-medium distal esophageal varices -Octreotide drip -Will confirm with primary team regarding continuation of Protonix, in light of new onset rash. -Levofloxacin 500mg IV daily -Avoid NSAIDs -Gastroenterology recommendations (Dr. Franklin) appreciated Hematologic -Monitor Hb/ Hct closely, for any signs of acute blood loss. FEN -IV normal saline at 100mL/ hour -Hypokalemia, repleted. Follow CMP, replete as necessary -NPO. Will evaluate for clear liquid diet in morning. Prophylaxis -SCDs bilateral lower extremities Disposition: We will continue to follow the patient. Thank you for this consultative opportunity. Visit type - Emergency Visit Emergency Visit: Yes ED Registration Date: 05/07/19 Care time: The patient presented to the Emergency Department on the above date and was hospitalized for further evaluation of their emergent condition. - New Patient This patient is new to me today: Yes Date on this admission: 05/08/19 - Critical Care Critical Care patient: Yes Total Critical Care Time (in minutes): 35 Critical Care Statement: The care of this patient involved high complexity decision making to prevent further life threatening deterioration of the patient 's condition and/or to evaluate & treat vital organ system(s) failure or risk of failure.
[2019-05-08] MEDS: KCL 10 MEQ IVPB 10 MEQ/100 ML INFUS.BAG IVPB SCH ×3 (15:52→18:43)
[2019-05-08] MEDS ORDERED: OCTREOTIDE ACETATE 200 MCG, OCTREOTIDE ACETATE 1,000 MCG in DEXTROSE 5%-WATER - 496 ML IVPB SCH (16:00)
[2019-05-08 19:35] LABS: HEMATOCRIT 32.8 % (35.4-49); HEMOGLOBIN 10.9 GM/dL (11.7-16.9); MCH 31.9 pg (25.7-33.7); MCHC 33.2 g/dl (32.0-35.9); MEAN CELL VOLUME 96.1 fl (80-96); MEAN PLT VOLUME 10.8 fl (7.5-11.1); PLATELET COUNT 80 K/MM3 (134-434); RBC 3.42 M/mm3 (4.00-5.60); RDW 16.5 % (11.9-15.9); WHITE BLOOD COUNT 5.6 K/mm3 (4.0-10.0)
[2019-05-09] MEDS: LORazepam 2 MG/ML SDV VIAL IVPUSH PRN ×2 (03:15→09:50)
[2019-05-09 04:20] LABS: SERUM IRON SATURATION 25 % (15-55); TOTAL IRON BINDING CAPACITY 390 ug/dL (250-450); UIBC 292 ug/dL (111-343)
[2019-05-09 06:00] LABS: HEMOGLOBIN 10.2 GM/dL (11.7-16.9); MCH 32.1 pg (25.7-33.7); MCHC 33.8 g/dl (32.0-35.9); MEAN CELL VOLUME 94.8 fl (80-96); RBC 3.17 M/mm3 (4.00-5.60); RDW 16.5 % (11.9-15.9)
[2019-05-09 06:39] LABS: ALBUMIN 2.4 g/dl (3.4-5.0); BILIRUBIN,TOTAL 1.6 mg/dL (0.2-1); BLOOD UREA NITROGEN 9.6 mg/dL (7-18); CALCIUM 7.4 mg/dL (8.5-10.1); CREATININE 0.6 mg/dL (0.55-1.3); MAGNESIUM 1.4 mg/dL (1.8-2.4); PHOSPHOROUS 3.2 mg/dL (2.5-4.9); TOT PROT 5.8 g/dl (6.4-8.2)
[2019-05-09] MEDS ORDERED: MAGNESIUM SULF 50% (8.12 MEQ/2 ML-1 GM VIAL) IVPB ONE (07:01)
--- NOTE | 2019-05-09 07:50 | PN ---
Physical Exam: SUBJECTIVE: Patient seen and examined at bedside this morning. Patient states he is hungry, and asking to eat. Patient endorses one melenic liquid bowel movement this morning. He denies headaches, lightheadedness, dizziness, changes in vision, subjective fevers, chills, shortness of breath, chest pain, palpitations, abdominal pain, nausea, vomiting. Counselled patient at length regarding importance of complete abstinence from alcohol. OBJECTIVE: Vital Signs Period Temp Pulse Resp BP Sys/Houser Pulse Ox Last 24 Hr 98 F-98.7 F 80-115 13-23 110-128/68-82 97-100 GENERAL: Patient is awake, alert, and fully oriented, in no acute distress. HEAD: Normocephalic, atraumatic EYES: Pupils equal, round and reactive to light, extraocular movements intact, sclera anicteric, conjunctiva clear. EARS, NOSE, THROAT: Oropharynx clear without exudates. Moist mucous membranes. Minimal subglossal pallor. NECK: Normal range of motion, supple without lymphadenopathy, or JVD. LUNGS: Good inspiratory effort. Breath sounds equal, clear to auscultation bilaterally. No wheezes, and no crackles. No accessory muscle use. HEART: Regular rate and rhythm. Normal S1 and S2 auscultated without murmur, rub or gallop. ABDOMEN: Soft, not distended, nontender to light and deep palpation x4 quadrants. Normoactive bowel sounds x4 quadrants. No guarding, no rebound tenderness. Hepatomegaly palpated and percussed 2cm below costal margin. RECTAL: Good anal sphincter tone. No external or internal hemorrhoids appreciated. Narvaez-brown stool palpated in rectal vault. No chucky blood upon gloved finger. UPPER EXTREMITIES: 2+ radial pulses bilaterally, warm, well-perfused. LOWER EXTREMITIES: 2+ dorsalis pedis pulses bilaterally, warm, well-perfused. No calf tenderness.bilaterally. No peripheral edema bilaterally. NEUROLOGICAL: Cranial nerves II-XII grossly intact. Normal speech. Strength 5/ 5 bilateral upper and lower extremities. No tremors appreciated. PSYCHIATRIC: Cooperative. Good eye contact. Appropriate mood and affect. SKIN: Warm, dry. Diffuse macular rash noted bilateral lower extremities, blanching upon palpation. Laboratory Results - last 24 hr 05/07/19 05/08/19 05/08/19 16:20 06:45 06:45 WBC 5.4 RBC 2.99 L Hgb 9.5 L Hct 28.3 L D MCV 94.6 MCH 31.8 MCHC 33.6 RDW 16.6 H Plt Count 74 L D MPV 10.0 Absolute Neuts (auto) 3.9 Neutrophils % 71.2 Lymphocytes % 18.2 D Monocytes % 8.2 Eosinophils % 1.8 Basophils % 0.6 Nucleated RBC % 0 Haptoglobin 109 PT with INR INR Sodium 142 Potassium 3.2 L Chloride 108 H Carbon Dioxide 24 Anion Gap 10 BUN 13.2 Creatinine 0.5 L Est GFR (CKD-EPI)AfAm 144.40 Est GFR (CKD-EPI)NonAf 124.59 Random Glucose 69 L Calcium 7.7 L Phosphorus 2.6 Magnesium 1.5 L Iron 98 TIBC 390 Iron Saturation 25 Total Bilirubin 2.4 H AST 80 H ALT 15 Alkaline Phosphatase 86 Total Protein 5.9 L Albumin 2.6 L 05/08/19 05/08/19 05/09/19 10:45 19:00 05:30 WBC 5.6 6.0 RBC 3.42 L 3.17 L Hgb 10.9 L 10.2 L Hct 32.8 L D 30.0 L MCV 96.1 H 94.8 MCH 31.9 32.1 MCHC 33.2 33.8 RDW 16.5 H 16.5 H Plt Count 80 L MPV 10.8 10.0 Absolute Neuts (auto) Neutrophils % Lymphocytes % Monocytes % Eosinophils % Basophils % Nucleated RBC % Haptoglobin PT with INR 16.00 H INR 1.35 H Sodium Potassium Chloride Carbon Dioxide Anion Gap BUN Creatinine Est GFR (CKD-EPI)AfAm Est GFR (CKD-EPI)NonAf Random Glucose Calcium Phosphorus Magnesium Iron TIBC Iron Saturation Total Bilirubin AST ALT Alkaline Phosphatase Total Protein Albumin 05/09/19 05:30 WBC RBC Hgb Hct MCV MCH MCHC RDW Plt Count MPV Absolute Neuts (auto) Neutrophils % Lymphocytes % Monocytes % Eosinophils % Basophils % Nucleated RBC % Haptoglobin PT with INR INR Sodium 139 Potassium 4.0 Chloride 106 Carbon Dioxide 21 Anion Gap 12 BUN 9.6 Creatinine 0.6 Est GFR (CKD-EPI)AfAm 133.98 Est GFR (CKD-EPI)NonAf 115.60 Random Glucose 120 H Calcium 7.4 L Phosphorus 3.2 Magnesium 1.4 L Iron TIBC Iron Saturation Total Bilirubin 1.6 H AST 51 H ALT 15 Alkaline Phosphatase 80 Total Protein 5.8 L Albumin 2.4 L Active Medications Generic Name Dose Route Start Last Admin Trade Name Stalin PRN Reason Stop Dose Admin Sodium Chloride 1,000 mls @ 100 mls/hr 05/07/19 20:00 05/08/19 20:06 Normal Saline - IV 100 mls/hr ASDIR SHAMIR Administration Levofloxacin 500 mg in 100 mls @ 100 mls/hr 05/08/19 08:52 05/08/19 12:28 Levaquin 500 Mg Premixed Ivpb - IVPB 100 mls/hr DAILY SHAMIR Administration Protocol Octreotide Acetate 200 mcg/ 500 mls @ 20.833 mls/hr 05/08/19 16:00 05/08/19 16:52 Octreotide Acetate 1,000 mcg/ IVPB 20.833 mls/hr Dextrose ASDIR SHAMIR Administration Lorazepam 1 mg 05/08/19 15:14 05/09/19 03:15 Ativan Injection - IVPUSH 1 mg Q4H PRN Administration ANXIETY Nadolol 20 mg 05/09/19 10:00 Corgard - PO DAILY SHAMIR Pantoprazole Sodium 40 mg 05/07/19 22:00 05/08/19 21:35 Protonix Iv IVPUSH 40 mg BID SHAMIR Administration ASSESSMENT/PLAN: Patient is a 54 year old male with history of alcohol use disorder (5-6 drinks of Vodka daily), alcoholic cirrhosis, esophageal varices, peptic ulcer disease, presented initially with three day history of hematemesis and melenic stools. Patient is s/p endoscopy revealing two columns small- medium sized distal esophageal varices which were banded, sliding hiatal hernia, and nonbleeding hypertensive gastropathy. Neurologic -Patient is currently, awake, alert, oriented, in no acute distress. -Patient does not appear to be withdrawing at this time. CIWA 0-1. -Ativan 1mg Q4 hours as needed for agitation, withdrawal. -Monitor for withdrawal signs, changes in mental status -Fall precautions Pulmonary -Patient saturating well on room air -Maintain oxygen saturation greater than 90% Cardiac -Patient currently normotensive, not on pressors. -Monitor hemodynamics closely, as patient is s/p variceal banding -Nadolol 20mg PO daily Gastrointestinal -Alcohol use disorder -Alcoholic cirrhosis -Esophageal varices -Peptic ulcer disease -Patient is s/p endoscopy with banding of two columns small-medium distal esophageal varices -Protonix discussed with Dr. Castro, who is in agreement with continuing Protonix, with close monitoring. Patient reports that this rash has been ongoing in the past and he has taken Protonix without any other concerning symptoms. -Octreotide drip -Levofloxacin 500mg IV daily -Avoid NSAIDs -Stool negative for occult blood this morning. -Will trial clear liquid diet this morning. -Gastroenterology recommendations (Dr. Franklin) appreciated -Hematologic -Hb/ Hct: 10.0/ 30.0. -Thrombocytopenia likely be secondary to alcoholic cirrhosis. Will follow CBC -Currently no evidence of acute bleeding, or hemodynamic instability. FEN -IV normal saline at 100mL/ hour -Hypomagnesemia repleted. Follow CMP, replete as necessary -Trial of clear liquid diet this morning. Prophylaxis -SCDs bilateral lower extremities Disposition: -Patient may be transferred to medical-surgical floor after 24 hours of monitoring in ICU, if patient remains hemodynamically stable without signs of acute bleeding. Visit type - Emergency Visit Emergency Visit: Yes ED Registration Date: 05/07/19 Care time: The patient presented to the Emergency Department on the above date and was hospitalized for further evaluation of their emergent condition. - New Patient This patient is new to me today: No - Critical Care Critical Care patient: Yes Total Critical Care Time (in minutes): 36 Critical Care Statement: The care of this patient involved high complexity decision making to prevent further life threatening deterioration of the patient 's condition and/or to evaluate & treat vital organ system(s) failure or risk of failure. - Discharge Referral Referred to [facility] No
[2019-05-09 07:53] LABS: PLATELET COUNT 84 K/MM3 (134-434)
[2019-05-09] MEDS ORDERED: PT OWN MED DRAWER 7, Y5N ONE (09:30)
[2019-05-09] MEDS: PANTOPRAZOLE SODIUM 40 MG VIAL IVPUSH SCH (09:43)
[2019-05-09] MEDS ORDERED: NADOLOL 20 MG TABLET (FP) PO SCH (10:00)
[2019-05-09] MEDS ORDERED: PROMETHAZINE HCL 25 MG/1 ML VIAL IVPUSH PRN ×2 (11:37→15:17)
--- NOTE | 2019-05-09 11:38 | PN ---
Teaching Attending Note Name of Resident: Alexander Gutierrez ATTENDING PHYSICIAN STATEMENT I saw and evaluated the patient. I reviewed the resident's note and discussed the case with the resident. I agree with the resident's findings and plan as documented. SUBJECTIVE: Patient seen and examined in the ICU. Awake and alert. No occult bleeding noted overnight. No CP or SOB. Feels nausea and could not tolerate PO intake this AM. Intake & Output 05/06/19 05/07/19 05/08/19 05/09/19 23:59 23:59 23:59 23:59 Intake Total 0 621.6 1489.6 Output Total 400 Balance 0 221.6 1489.6 Weight 149 lb 6.4 oz 157 lb 13.616 oz 158 lb 3.2 oz Last Vital Signs Temp Pulse Resp BP Pulse Ox 98 F 82 18 119/76 97 05/09/19 06:00 05/09/19 06:00 05/09/19 06:00 05/09/19 06:00 05/09/19 09:00 Active Medications Sodium Chloride (Normal Saline -) 1,000 mls @ 100 mls/hr IV ASDIR [facility] Last Admin: 05/08/19 20:06 Dose: 100 mls/hr Levofloxacin (Levaquin 500 Mg Premixed Ivpb -) 500 mg in 100 mls @ 100 mls/hr IVPB DAILY [facility]; Protocol Last Admin: 05/09/19 09:43 Dose: 100 mls/hr Octreotide Acetate 200 mcg/Octreotide Acetate 1,000 mcg/Dextrose 500 mls @ 20.833 mls/hr IVPB ASDIR SHAMIR Last Admin: 05/08/19 16:52 Dose: 20.833 mls/hr Lorazepam (Ativan Injection -) 1 mg IVPUSH Q4H PRN PRN Reason: ANXIETY Last Admin: 05/09/19 09:50 Dose: 1 mg Nadolol (Corgard -) 20 mg PO DAILY SHAMIR Last Admin: 05/09/19 09:43 Dose: 20 mg Pantoprazole Sodium (Protonix Iv) 40 mg IVPUSH BID SHAMIR Last Admin: 05/09/19 09:43 Dose: 40 mg OBJECTIVE: GENERAL: Patient is awake, alert, and fully oriented, in no acute distress. HEAD: Normocephalic, atraumatic EYES: Pupils equal, round and reactive to light, extraocular movements intact, sclera anicteric, conjunctiva clear. EARS, NOSE, THROAT: Oropharynx clear without exudates. Moist mucous membranes. Minimal subglossal pallor. NECK: Normal range of motion, supple without lymphadenopathy, or JVD. LUNGS: Good inspiratory effort. Breath sounds equal, clear to auscultation bilaterally. No wheezes, and no crackles. No accessory muscle use. HEART: Regular rate and rhythm. Normal S1 and S2 auscultated without murmur, rub or gallop. ABDOMEN: Soft, not distended, nontender, Normoactive bowel sounds x4 quadrants. No guarding, no rebound tenderness. UPPER EXTREMITIES: 2+ radial pulses bilaterally, warm, well-perfused. LOWER EXTREMITIES: 2+ dorsalis pedis pulses bilaterally, warm, well-perfused. No calf tenderness.bilaterally. No peripheral edema bilaterally. NEUROLOGICAL: Non-focal PSYCHIATRIC: Cooperative. Good eye contact. Appropriate mood and affect. SKIN: Warm, dry. Improving erythematous rash in bilateral lower extremities. Laboratory Results - last 24 hr 05/07/19 05/08/19 05/08/19 16:20 06:45 06:45 WBC 5.4 RBC 2.99 L Hgb 9.5 L Hct 28.3 L D MCV 94.6 MCH 31.8 MCHC 33.6 RDW 16.6 H Plt Count 74 L D MPV 10.0 Absolute Neuts (auto) 3.9 Neutrophils % 71.2 Lymphocytes % 18.2 D Monocytes % 8.2 Eosinophils % 1.8 Basophils % 0.6 Nucleated RBC % 0 Haptoglobin 109 PT with INR INR Sodium 142 Potassium 3.2 L Chloride 108 H Carbon Dioxide 24 Anion Gap 10 BUN 13.2 Creatinine 0.5 L Est GFR (CKD-EPI)AfAm 144.40 Est GFR (CKD-EPI)NonAf 124.59 Random Glucose 69 L Calcium 7.7 L Phosphorus 2.6 Magnesium 1.5 L Iron 98 TIBC 390 Iron Saturation 25 Total Bilirubin 2.4 H AST 80 H ALT 15 Alkaline Phosphatase 86 Total Protein 5.9 L Albumin 2.6 L 05/08/19 05/08/19 05/09/19 10:45 19:00 05:30 WBC 5.6 6.0 RBC 3.42 L 3.17 L Hgb 10.9 L 10.2 L Hct 32.8 L D 30.0 L MCV 96.1 H 94.8 MCH 31.9 32.1 MCHC 33.2 33.8 RDW 16.5 H 16.5 H Plt Count 80 L MPV 10.8 10.0 Absolute Neuts (auto) Neutrophils % Lymphocytes % Monocytes % Eosinophils % Basophils % Nucleated RBC % Haptoglobin PT with INR 16.00 H INR 1.35 H Sodium Potassium Chloride Carbon Dioxide Anion Gap BUN Creatinine Est GFR (CKD-EPI)AfAm Est GFR (CKD-EPI)NonAf Random Glucose Calcium Phosphorus Magnesium Iron TIBC Iron Saturation Total Bilirubin AST ALT Alkaline Phosphatase Total Protein Albumin 05/09/19 05:30 WBC RBC Hgb Hct MCV MCH MCHC RDW Plt Count MPV Absolute Neuts (auto) Neutrophils % Lymphocytes % Monocytes % Eosinophils % Basophils % Nucleated RBC % Haptoglobin PT with INR INR Sodium 139 Potassium 4.0 Chloride 106 Carbon Dioxide 21 Anion Gap 12 BUN 9.6 Creatinine 0.6 Est GFR (CKD-EPI)AfAm 133.98 Est GFR (CKD-EPI)NonAf 115.60 Random Glucose 120 H Calcium 7.4 L Phosphorus 3.2 Magnesium 1.4 L Iron TIBC Iron Saturation Total Bilirubin 1.6 H AST 51 H ALT 15 Alkaline Phosphatase 80 Total Protein 5.8 L Albumin 2.4 L ASSESSMENT/PLAN: Alcohol use disorder (5-6 drinks of Vodka daily) Alcoholic cirrhosis Esophageal varices Peptic ulcer disease Hematemesis and melenic stools S/P endoscopy revealing two columns small- medium sized distal esophageal varices which were banded, sliding hiatal hernia, and nonbleeding hypertensive gastropathy Trial of anti-emetic Octreotide Nadolol Noted empiric Levaquin PO as tolerated: Clears Mechanical VTE prophylaxis Ativan PRN Os as needed PPI Follow CBC Normal transfusion thresholds Floor Dr Driver
--- NOTE | 2019-05-09 11:48 | PN.GI ---
GI Progress Note Subjective: No abdominal pain States that he was nauseous after clears this AM and vomited. No dysphagia No Hematemesis - Objective Vital Signs: Vital Signs Temperature 98 F 05/09/19 06:00 Pulse Rate 82 05/09/19 06:00 Respiratory Rate 18 05/09/19 06:00 Blood Pressure 119/76 05/09/19 06:00 O2 Sat by Pulse Oximetry (%) 97 05/09/19 09:00 Constitutional: Calm Eyes: No: Sclera Icterus Cardiovascular: Yes: Regular Rate and Rhythm Respiratory: Yes: CTA Bilaterally ...Auscultate: Yes: Normoactive Bowel Sounds ...Palpate: Yes: Soft. No: Tenderness Edema: No Neurological: Yes: Alert, Tremors Labs: CBC, BMP 05/09/19 05:30 05/09/19 05:30 INR, PTT INR 1.35 (0.83-1.09) H 05/08/19 10:45 Hepatic Panel Total Bilirubin 1.6 mg/dL (0.2-1) H 05/09/19 05:30 AST 51 U/L (15-37) H 05/09/19 05:30 ALT 15 U/L (13-61) 05/09/19 05:30 Alkaline Phosphatase 80 U/L (45-117) 05/09/19 05:30 Albumin 2.4 g/dl (3.4-5.0) L 05/09/19 05:30 Problem List - Problems (1) Upper GI bleeding Assessment/Plan: No overt bleeding D/C Octreotide Protonix 20mg daily if it is fel that his rash was not from protonix Nadolol 20mg once daily Clears until tolerates, then full liquids in AM Ordered Abdominal US to screen for HCC OK with downgrade if remains stable Code(s): K92.2 - GASTROINTESTINAL HEMORRHAGE, UNSPECIFIED
--- NOTE | 2019-05-09 13:43 | PN ---
Progress Note, Physician History of Present Illness: no more upper gi bleeding tolerating clear liquid diet - Current Medication List Current Medications: Active Medications Sodium Chloride (Normal Saline -) 1,000 mls @ 100 mls/hr IV ASDIR SHAMIR Last Admin: 05/08/19 20:06 Dose: 100 mls/hr Levofloxacin (Levaquin 500 Mg Premixed Ivpb -) 500 mg in 100 mls @ 100 mls/hr IVPB DAILY SHAMIR; Protocol Last Admin: 05/09/19 09:43 Dose: 100 mls/hr Lorazepam (Ativan Injection -) 1 mg IVPUSH Q4H PRN PRN Reason: ANXIETY Last Admin: 05/09/19 09:50 Dose: 1 mg Nadolol (Corgard -) 20 mg PO DAILY SHAMIR Last Admin: 05/09/19 09:43 Dose: 20 mg Pantoprazole Sodium (Protonix -) 20 mg PO DAILY SHAMIR Promethazine HCl (Phenergan Injection -) 12.5 mg IVPUSH Q6H PRN PRN Reason: NAUSEA Stop: 05/10/19 10:00 - Objective Vital Signs: Vital Signs Temperature 97.7 F 05/09/19 10:00 Pulse Rate 85 05/09/19 12:00 Respiratory Rate 20 05/09/19 12:00 Blood Pressure 126/86 05/09/19 12:00 O2 Sat by Pulse Oximetry (%) 97 05/09/19 09:00 Constitutional: Yes: No Distress HENT: Yes: Atraumatic Neck: Yes: Supple Cardiovascular: Yes: Regular Rate and Rhythm Respiratory: Yes: CTA Bilaterally Gastrointestinal: Yes: Normal Bowel Sounds Extremities: Yes: WNL Edema: No Peripheral Pulses WNL: Yes Integumentary: Yes: Other (rash on arms and legs getting much better) Neurological: Yes: Alert, Oriented Labs: CBC, BMP 05/09/19 05:30 05/09/19 05:30 INR, PTT INR 1.35 (0.83-1.09) H 05/08/19 10:45 Problem List - Problems (1) Upper GI bleeding Assessment/Plan: po zantac on clear liquid diet...advance to soft regular diet Code(s): K92.2 - GASTROINTESTINAL HEMORRHAGE, UNSPECIFIED (2) Portal hypertensive gastropathy Code(s): K76.6 - PORTAL HYPERTENSION; K31.89 - OTHER DISEASES OF STOMACH AND DUODENUM (3) Smoking greater than 30 pack years Code(s): F17.210 - NICOTINE DEPENDENCE, CIGARETTES, UNCOMPLICATED (4) Alcohol abuse Assessment/Plan: prn ativan for withdrawl stable Code(s): F10.10 - ALCOHOL ABUSE, UNCOMPLICATED (5) Rash and nonspecific skin eruption Assessment/Plan: prn benadryl derm consult in place patient syaing he gets this rash when nervous Code(s): R21 - RASH AND OTHER NONSPECIFIC SKIN ERUPTION
[2019-05-09 14:05] VITALS: BMI 22.6
[2019-05-09] MEDS ORDERED: SODIUM CHLORIDE 1,000 ML IV SCH (15:17)
[2019-05-09] MEDS ORDERED: LORazepam 1 MG TABLET PO ONE (16:00)
[2019-05-09] MEDS ORDERED: diphenhydrAMINE HCL 25 MG CAPSULE (FP) PO ONE (16:00)
[2019-05-09] MEDS: diphenhydrAMINE HCL 25 MG CAPSULE (FP) PO PRN (22:29)
[2019-05-09] MEDS: RANITIDINE HCL 150 MG TABLET (FP) PO SCH (22:29)
[2019-05-10] MEDS: diphenhydrAMINE HCL 25 MG CAPSULE (FP) PO PRN ×2 (04:50→20:00)
[2019-05-10 08:36] LABS: ALBUMIN 2.5 g/dl (3.4-5.0); BILIRUBIN,TOTAL 1.3 mg/dL (0.2-1); BLOOD UREA NITROGEN 5.5 mg/dL (7-18); CALCIUM 7.7 mg/dL (8.5-10.1); CREATININE 0.5 mg/dL (0.55-1.3); MAGNESIUM 1.8 mg/dL (1.8-2.4); PHOSPHOROUS 1.4 mg/dL (2.5-4.9); POTASSIUM 3.4 mmol/L (3.5-5.1); TOT PROT 5.8 g/dl (6.4-8.2)
[2019-05-10 08:49] LABS: HEMATOCRIT 28.2 % (35.4-49); HEMOGLOBIN 9.7 GM/dL (11.7-16.9); MCH 32.3 pg (25.7-33.7); MCHC 34.3 g/dl (32.0-35.9); MEAN CELL VOLUME 94.4 fl (80-96); MEAN PLT VOLUME 10.3 fl (7.5-11.1); PLATELET COUNT 94 K/MM3 (134-434); RBC 2.99 M/mm3 (4.00-5.60); RDW 16.7 % (11.9-15.9); WHITE BLOOD COUNT 4.9 K/mm3 (4.0-10.0)
[2019-05-10] MEDS ORDERED: PT OWN MED DRAWER 7, Y5N ONE (09:30)
[2019-05-10] MEDS: RANITIDINE HCL 150 MG TABLET (FP) PO SCH ×2 (09:48→21:17)
[2019-05-10] MEDS: NADOLOL 20 MG TABLET (FP) PO SCH (09:48)
[2019-05-10] MEDS: LORazepam 2 MG/ML SDV VIAL IVPUSH PRN ×2 (09:55→21:17)
[2019-05-10] MEDS ORDERED: PANTOPRAZOLE SODIUM 40 MG VIAL IVPUSH SCH (10:00)
[2019-05-10] MEDS ORDERED: PANTOPRAZOLE 20 MG TABLET (FP) PO SCH ×2 (10:00)
--- NOTE | 2019-05-10 13:06 | PN ---
GI Progress Note Subjective: no nausea, no vomiting, no melena - Objective Vital Signs: Vital Signs Temperature 98.8 F 05/10/19 08:50 Pulse Rate 78 05/10/19 08:50 Respiratory Rate 18 05/10/19 08:50 Blood Pressure 129/78 05/10/19 08:50 O2 Sat by Pulse Oximetry (%) 98 05/10/19 09:00 Constitutional: Well Nourished Eyes: Yes: Conjunctiva Clear HENT: Yes: Atraumatic Neck: Yes: Trachea Midline Cardiovascular: Yes: Regular Rate and Rhythm Respiratory: Yes: CTA Bilaterally ...Palpate: Yes: Soft. No: Firm/Rigid, Guarding, Hepatomegaly, Mass, Pulsatile Mass, Splenomegaly, Tenderness, Tenderness, Epigastium Labs: CBC, BMP 05/10/19 07:14 05/10/19 07:11 INR, PTT INR 1.35 (0.83-1.09) H 05/08/19 10:45 Problem List - Problems (1) Upper GI bleeding Assessment/Plan: --resolved R> was advised to abstain from Alcohol use low sodium diet Code(s): K92.2 - GASTROINTESTINAL HEMORRHAGE, UNSPECIFIED
--- NOTE | 2019-05-10 13:53 | DS ---
Physical Examination Vital Signs: Vital Signs Temperature 98.8 F 05/10/19 08:50 Pulse Rate 78 05/10/19 08:50 Respiratory Rate 18 05/10/19 08:50 Blood Pressure 129/78 05/10/19 08:50 O2 Sat by Pulse Oximetry (%) 98 05/10/19 09:00 Constitutional: Yes: No Distress HENT: Yes: Atraumatic Neck: Yes: Supple Cardiovascular: Yes: Regular Rate and Rhythm Respiratory: Yes: CTA Bilaterally Gastrointestinal: Yes: Normal Bowel Sounds Extremities: Yes: WNL Neurological: Yes: Alert, Oriented Labs: CBC, BMP 05/10/19 07:14 05/10/19 07:11 Discharge Summary Reason For Visit: ALCOHOL ABUSE Current Active Problems Rash and nonspecific skin eruption (Acute) Rectal bleeding (Acute) Upper GI bleeding (Acute) - Instructions Diet, Activity, Other Instructions: do not drink alcohol see gi doctor in 1 week Referrals: Ike Franklin DO [Staff Physician] - - Home Medications Comprehensive Discharge Medication List: Ambulatory Orders Naprosyn PO PRN 05/08/19 Pantoprazole Sodium [Protonix] 40 mg PO BID 05/08/19 Trazodone HCl 05/09/19 Diphenhydramine HCl [Benadryl Capsule -] 25 mg PO Q6H PRN capsule 05/10/19
--- NOTE | 2019-05-10 15:11 | PN ---
Progress Note, Physician - Current Medication List Current Medications: Active Medications Diphenhydramine HCl (Benadryl -) 25 mg PO Q6H PRN PRN Reason: FOR ITCHING Last Admin: 05/10/19 04:50 Dose: 25 mg Levofloxacin (Levaquin 500 Mg Premixed Ivpb -) 500 mg in 100 mls @ 100 mls/hr IVPB DAILY [facility]; Protocol Last Admin: 05/10/19 09:48 Dose: 100 mls/hr Lorazepam (Ativan Injection -) 1 mg IVPUSH Q4H PRN PRN Reason: ANXIETY Last Admin: 05/10/19 09:55 Dose: 1 mg Nadolol (Corgard -) 20 mg PO DAILY SHAMIR Last Admin: 05/10/19 09:48 Dose: 20 mg Ranitidine HCl (Zantac -) 150 mg PO BID SHAMIR Last Admin: 05/10/19 09:48 Dose: 150 mg - Objective Vital Signs: Vital Signs Temperature 98.8 F 05/10/19 08:50 Pulse Rate 78 05/10/19 08:50 Respiratory Rate 18 05/10/19 08:50 Blood Pressure 129/78 05/10/19 08:50 O2 Sat by Pulse Oximetry (%) 98 05/10/19 09:00 Constitutional: Yes: No Distress HENT: Yes: Atraumatic Neck: Yes: Supple Cardiovascular: Yes: Regular Rate and Rhythm Respiratory: Yes: CTA Bilaterally Gastrointestinal: Yes: Normal Bowel Sounds Extremities: Yes: WNL Edema: No Neurological: Yes: Alert, Oriented Labs: CBC, BMP 05/10/19 07:14 05/10/19 07:11 INR, PTT INR 1.35 (0.83-1.09) H 05/08/19 10:45 Problem List - Problems (1) Upper GI bleeding Assessment/Plan: resolved Code(s): K92.2 - GASTROINTESTINAL HEMORRHAGE, UNSPECIFIED (2) Portal hypertensive gastropathy Code(s): K76.6 - PORTAL HYPERTENSION; K31.89 - OTHER DISEASES OF STOMACH AND DUODENUM (3) Smoking greater than 30 pack years Code(s): F17.210 - NICOTINE DEPENDENCE, CIGARETTES, UNCOMPLICATED (4) Alcohol abuse Assessment/Plan: prn ativan for withdrawl stable Code(s): F10.10 - ALCOHOL ABUSE, UNCOMPLICATED
[2019-05-11 04:07] LABS: HEP A AB, IGM Negative (Negative)
[2019-05-11] MEDS ORDERED: PT OWN MED DRAWER 7, Y5N ONE (09:45)
[2019-05-11] MEDS: NADOLOL 20 MG TABLET (FP) PO SCH (09:55)
[2019-05-11] MEDS: diphenhydrAMINE HCL 25 MG CAPSULE (FP) PO PRN (09:55)
[2019-05-11] MEDS: RANITIDINE HCL 150 MG TABLET (FP) PO SCH (09:55)
[2019-05-11 11:16] VITALS: BP 117/79; PULSE 94; TEMP 98.8
--- NOTE | 2019-05-11 12:41 | DS ---
Physical Examination Vital Signs: Vital Signs Temperature 98.8 F 05/11/19 10:00 Pulse Rate 94 H 05/11/19 10:00 Respiratory Rate 18 05/11/19 10:00 Blood Pressure 117/79 05/11/19 10:00 O2 Sat by Pulse Oximetry (%) 98 05/10/19 21:00 Constitutional: Yes: No Distress HENT: Yes: Atraumatic Neck: Yes: Supple Respiratory: Yes: CTA Bilaterally Gastrointestinal: Yes: Normal Bowel Sounds Extremities: Yes: WNL Neurological: Yes: Alert, Oriented Labs: CBC, BMP 05/10/19 07:14 05/10/19 07:11 Discharge Summary Reason For Visit: ALCOHOL ABUSE Condition: Stable - Instructions Diet, Activity, Other Instructions: do not drink alcohol see gi doctor in 1 week Referrals: Ike Franklin DO [Staff Physician] - Disposition: HOME - Home Medications Comprehensive Discharge Medication List: Ambulatory Orders Naprosyn PO PRN 05/08/19 Pantoprazole Sodium [Protonix] 40 mg PO BID 05/08/19 Trazodone HCl 05/09/19 Diphenhydramine HCl [Benadryl Capsule -] 25 mg PO Q6H PRN capsule 05/10/19 Pantoprazole Sodium [Protonix -] 20 mg PO DAILY #30 tablet.ec 05/11/19 mn home
[2019-05-12 22:11] LABS: HEP B CORE AB, TOT Negative (Negative)
== END 2019-05-11 12:00 | disposition home or self-care (01) | DRG 253 ==
LOC: JER 15:06 → JERBED 18:03 → J5S 19:00 → JICU 05-08 15:18 → J8W 05-09 15:37
PROVIDERS: ADMIT Internal Medicine; ATTEND Internal Medicine
PROC: 06L38CZ Occlusion of Esophageal Vein with Extraluminal Device, Via Natural or Artificial Opening Endoscopic (ICD-10-PCS; principal; 2019-05-08 11:30)
DX: K92.2 Gastrointestinal hemorrhage, unspecified (principal); K76.6 Portal hypertension; I85.00 Esophageal varices without bleeding; D69.6 Thrombocytopenia, unspecified; K21.9 Gastro-esophageal reflux disease without esophagitis; R21 Rash and other nonspecific skin eruption; K70.30 Alcoholic cirrhosis of liver without ascites; K44.9 Diaphragmatic hernia without obstruction or gangrene; K31.89 Other diseases of stomach and duodenum; E87.6 Hypokalemia; F10.10 Alcohol abuse, uncomplicated
CPT/HCPCS: 36415; 76705-TC; 80053; 80307; 82272; 82550; 82728; 83010; 83540; 83550; 83615; 83735; 84100; 84443; 84484; 85025; 85027; 85044; 85610; 86317; 86704; 86706; 86708; 86803; 86850; 86900; 86901; 93005; 93010; 99285-25; J7030

== ENCOUNTER 2019-06-24 11:57 | Day surgery (SDC) | payer OTHER ==
[2019-06-23 14:59] VITALS: BMI 22.9
[2019-06-24 12:59] VITALS: TEMP 98.5
[2019-06-24 14:18] VITALS: BP 107/77; PULSE 72
--- NOTE | 2019-06-25 20:42 | PATH ---
Surgical Pathology Report Patient Name: [facility]. Rec. #: [id number] /Age/Gender: 1965 (Age: 54) / M Account: [id number] Location: [facility]-ENDOSCOPY Taken: 06/24/2019 Received: 06/24/2019 Reported: 06/25/2019 Physicians: Jose Martin Franklin D.O. Specimen(s) Received A: DUODENAL BULB B: PYLORUS C: ANTRUM AND BODY Clinical History Alcoholic liver cirrhosis Postoperative diagnosis: portal gastropathy, gastritis, duodenitis Final Diagnosis A. DUODENAL BULB, BIOPSY: DUODENAL MUCOSA WITH MILD CHRONIC DUODENITIS B. STOMACH, PYLORUS, BIOPSY: GASTRIC MUCOSA WITH MILD CHRONIC GASTRITIS. IMMUNOHISTOCHEMICAL STAIN FOR H. PYLORI IS NEGATIVE. C. STOMACH, ANTRUM AND BODY, BIOPSY: GASTRIC MUCOSA WITH MILD CHRONIC GASTRITIS. IMMUNOHISTOCHEMICAL STAIN FOR H. PYLORI IS NEGATIVE. Electronically Signed Shaila Govea M.D. Gross Description A. Received in formalin, labeled "biopsy duodenal bulb" is a harrington, irregular portion of soft tissue measuring 0.3 cm. in greatest dimension. The specimen is submitted in toto in one cassette. B. Received in formalin, labeled "biopsy pylorus" are 4 harrington, irregular portions of soft tissue ranging from 0.2-0.5 cm. in greatest dimension. The specimens are submitted in toto in one cassette. C. Received in formalin, labeled "biopsy antrum and body" is a harrington, irregular portion of soft tissue measuring 0.5 cm. in greatest dimension. The specimen is submitted in toto in one cassette. /06/24/2019 saudi/06/24/2019
== END 2019-06-24 13:43 | disposition home or self-care (01) ==
LOC: JASU-ENDO 11:57
PROVIDERS: ATTEND Internal Medicine Gastroenterology
PROC: 0DB78ZX Excision of Stomach, Pylorus, Via Natural or Artificial Opening Endoscopic, Diagnostic (ICD-10-PCS; 2019-06-24)
PROC: 0DB68ZX Excision of Stomach, Via Natural or Artificial Opening Endoscopic, Diagnostic (ICD-10-PCS; 2019-06-24)
PROC: 0DB98ZX Excision of Duodenum, Via Natural or Artificial Opening Endoscopic, Diagnostic (ICD-10-PCS; principal; 2019-06-24 10:30)
DX: Z13.810 Encounter for screening for upper gastrointestinal disorder (principal); K29.50 Unspecified chronic gastritis without bleeding; K21.0 Gastro-esophageal reflux disease with esophagitis
CPT/HCPCS: 88305-TC; 88342-TC